=== PATIENT | female | born 1985 | race Caucasian/White ===

== ENCOUNTER 2017-05-25 16:36 | Emergency (ER) | payer OTHER, MEDICAID ==
[~2017-05-25] VITALS: Ht 170.2 cm; Wt 97.5 kg
[~2017-05-25 16:36] MED LIST: BACTRIM DS TAB1 EACH PO; PYRIDIUM200 MG PO; TRAMADOL 50 MG50 MG PO
[2017-05-25 16:59] LABS: URINE BILIRUBIN NEGATIVE (Negative); URINE BLOOD NEGATIVE (Negative); URINE CLARITY CLEAR; URINE COLOR YELLOW; URINE GLUCOSE-RANDOM NEGATIVE (Negative); URINE KETONES NEGATIVE (Negative); URINE LEUKOCYTES-REFLEX NEGATIVE (Negative); URINE NITRITE-REFLEX NEGATIVE (Negative); URINE PROTEIN TRACE (Negative); URINE UROBILINOGEN 0.2 E.U./dl (0.2-1.0)
[2017-05-25 17:12] LABS: HEMATOCRIT 39.7 % (37.0-47.0); HEMOGLOBIN 13.4 gm/dL (12.0-15.0); MCH 30.3 pg (26.0-34.0); MCHC 33.8 g/dL (28.0-37.0); MCV 89.7 fL (80.0-100.0); MPV 8.3 fl. (7.2-11.1); NUCLEATED RBCS 0 /100WBC; PLATELET COUNT* 242 thou/uL (150-400); RBC 4.42 mil/uL (4.20-5.00); RDW-CV 12.6 % (10.5-14.5); WBC 8.9 thou/uL (4.0-11.0)
[2017-05-25 17:19] LABS: CALCIUM 8.2 mg/dL (8.5-10.1); CREATININE 0.8 mg/dL (0.6-1.3); POTASSIUM 3.8 mmol/L (3.5-5.1)
[2017-05-25 17:23] LABS: TOTAL BILIRUBIN 0.4 mg/dL (<0.1-1.0); TOTAL PROTEIN 7.7 g/dL (6.4-8.2)
[2017-05-25 17:51] LABS: INFLUENZA A ANTIGEN None Detected (None Detect); INFLUENZA B ANTIGEN None Detected (None Detect)
[2017-05-25 18:00] LABS: ABSOLUTE EOSINOPHILS 0.1 thou/uL (0.0-0.7); ABSOLUTE LYMPHOCYTES 0.8 thou/uL (0.8-5.3); ABSOLUTE MONOCYTES 0.4 thou/uL (0.0-1.2); ABSOLUTE NEUTROPHILS 7.7 thou/uL (1.6-8.1); ATYPICAL LYMPHS 2 %; PLATELET ESTIMATE ADEQUATE
[2017-05-25] MEDS ORDERED: CIPRO500 M1 PO (18:44)
[2017-05-25] MEDS ORDERED: ZOFRAN ODT4 MG PO (18:44)
[2017-05-25] MEDS ORDERED: FLAGYL500 MG PO (18:44)
[2017-05-25 18:56] VITALS: BP 109/59
== END 2017-05-25 18:57 | disposition home or self-care (01) ==
LOC: M.ERS 16:36
PROVIDERS: Nurse Practitioner Family
DX: K52.9 Noninfective gastroenteritis and colitis, unspecified (principal); Z88.0 Allergy status to penicillin; Z88.1 Allergy status to other antibiotic agents